=== PATIENT | female | born 1970 | race Caucasian/White ===

== ENCOUNTER 2017-10-20 21:38 | Emergency (ER) | payer OTHER ==
[~2017-10-20] VITALS: Ht 162.6 cm; Wt 63.5 kg
[2017-10-20 22:05] VITALS: BP 128/79
[2017-10-21] MEDS ORDERED: LIDODERM 5% P1 PATCH TD (03:27)
[2017-10-21] MEDS ORDERED: MOTRIN600 MG PO (03:27)
[2017-10-21] MEDS ORDERED: BACLOFEN10 MG PO (03:27)
== END 2017-10-21 03:53 | disposition home or self-care (01) ==
LOC: EME 21:38
DX: M54.2 Cervicalgia (principal); R10.11 Right upper quadrant pain; R06.02 Shortness of breath; R51 Headache; H93.19 Tinnitus, unspecified ear; V49.40XA Driver injured in collision with unspecified motor vehicles in traffic accident, initial encounter; Y92.410 Unspecified street and highway as the place of occurrence of the external cause; M50.30 Other cervical disc degeneration, unspecified cervical region; Z87.891 Personal history of nicotine dependence
CPT/HCPCS: 70450; 71250; 72125; 74176; 99281; 99284; J3010